=== PATIENT | male | born 1965 | race Caucasian/White ===

== ENCOUNTER → 2017-12-19 06:56 | Day surgery (SDC) | payer OTHER ==
[~2017-12-19 06:56] MED LIST: Buffered Lidocaine 0.9% SYRIN* 5 ML/SYR SYRINGE INTRADERM ONE; Bupivacaine 0.5% SDV PF* 30ML VIAL ONE; Bupivacaine 0.5% W/EPI SDV* 30 ML VIAL ONE; Clindamycin 900 MG/D5W BAG(*) 900 MG/50 ML BAG IVPB ONE; Lidocaine 2% PF * 5 ML VIAL ONE; Midazolam* 1 MG/ML 2 ML VIAL (2 MG) ONE; Naloxone* 0.4 MG/ML 1 ML VIAL IV PRN; Propofol* 10 MG/ML 20 ML BTL IV PUSH ONE; Sodium Citrate/Citric Acid* 15 ML UDC ONE; Sodium Citrate/Citric Acid* 15 ML UDC PO ONE; fentaNYL* 50 MCG/ML 2 ML VIAL (100 MCG VIAL) ONE
[2017-12-19] MEDS: fentaNYL* 50 MCG/ML 2 ML VIAL (100 MCG VIAL) IV PRN ×4 (09:11→09:24)
[2017-12-19 09:46] VITALS: BP 133/76
--- NOTE | 2017-12-19 17:12 | OP ---
OPERATIVE REPORT: DATE OF OPERATION: 12/19/17 DATE OF : 65 SURGEON: Gautam Montenegro MD FORM [employer]TER [address] FORMS: CHELSI Collazo A physician speech language pathologist assistant was required for the length of the procedure for assistance with position, retraction, closure. ANESTHESIOLOGIST: Dr. Gary Hawk. ANESTHESIA: General anesthesia, local anesthesia with less than 10cc Marcaine 0.25% with epinephrine in subcutaneous tissue dorsal hand. PRE-OP DIAGNOSES: 1. Right hand dorsum soft tissue swelling and pain. 2. Right hand long finger metacarpophalangeal joint effusion. 3. Right hand long finger metacarpophalangeal joint possible infection, possible osteomyelitis. 4. Right hand dorsum possible foreign body. POST-OP DIAGNOSES: 1. Right hand chronic wound, dorsum. 2. Right hand traumatic arthrotomy long finger metacarpophalangeal joint. 3. 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 OPERATIVE PROCEDURES: 1. Open arthrotomy with irrigation and debridement, right hand long finger metacarpophalangeal joint. 2. Irrigation and debridement right hand, skin, subcutaneous tissue, muscle, bone. IV ANTIBIOTICS: Clindamycin 900 mg IV provided after cultures were obtained. IV FLUIDS: See anesthesia note. TOURNIQUET TIME: 60 minutes at 215 mmHg with the tourniquet over the upper arm. AYHA-CF-[id number] TIME: 50 minutes. IRRIGATION UTILIZED: 3 liters. SPECIMENS: Aerobic and anaerobic culture swabs. IMPLANTS: None. COMPLICATIONS: None. ESTIMATED BLOOD LOSS: Minimal. INDICATIONS FOR PROCEDURE: The patient is a 52-year-old man, right-hand dominant prisoner at the [facility], hepatitic C positive, who presented to me in clinic with swelling of the dorsum of the right hand since March of 2017. The patient states that the injury started with a spider bite. There was relapsing swelling about the dorsum of the hand adjacent to the long finger MCP joint. This area was lanced, incised by a hospital doctor 3 times, but the fluid kept on accumulating. MRI preoperatively demonstrated a large effusion in the MCP joint. There is also some increased signal of bone and possible foreign body superficial to the extensor mechanism. Blood work was not consistent with infection. I booked the patient for surgery, incision, irrigation, and debridement, expecting possible foreign body, possible granulomatous reaction, possible infection. DESCRIPTION OF PROCEDURE: In the preoperative holding area, the patient signed written consent. Operative extremity and operative finger were marked in preoperative holding. The patient was taken back to the operating room and placed supine on the operating room table. General anesthesia was induced. Hand table applied. Tourniquet was placed around the right upper arm. The right upper extremity was prepped and draped. Surgical time-out was performed. Esmarch was applied and the tourniquet was elevated to 250 mmHg. Examination of the skin revealed no drainage, but did reveal a puncture-type defect in the skin, with healing above it. I made a longitudinal skin incision that incorporated this divot in the skin. I dissected down to the extensor mechanism. Extensor mechanism was scared into the subcutaneous tissue and skin about that divot area. I carefully dissected these 2 layers apart, trying to minimize any damage to small superficial veins and nerves. There clearly appeared to be a type of closed off fistula between the outside of the skin and the subcutaneous layer. Light irrigation. Examination of the extensor mechanism revealed a longitudinal traumatic arthrotomy in the extensor mechanism down through the joint capsule, with exposed metacarpal head. This longitudinal traumatic arthrotomy was present ulnar to the extensor tendon, which appeared to be intact. There was some cuff ulnar to the extensor tendon still intact. No clear foreign body removed. There was some scaring, globular, about the extensor mechanism. This was removed with a rongeur and also with sharp dissection, off the ulnar aspect of the extensor mechanism just ulnar to the traumatic arthrotomy site. Extensor mechanism looked in relatively good shape, otherwise. I extended the traumatic arthrotomy a cm proximal and distal for improved visualization. I placed retractors and evaluated the metacarpal head and base of the proximal phalanx. Articular cartilage was in excellent shape. No damage to it. No tooth present. No injury and no wearing away of articular cartilage of either aspect. I visualized the bone along the dorsum of the metacarpal head in the area that there was increased signal uptake on preoperative MRI. I lightly debrided this bone with a small curette and there was no area of softening or a clear bone infection. It should be stated that as soon as I started dissecting about the extensor mechanism, I had obtained aerobic and anaerobic culture swabs and after that, I started the IV antibiotics. This was done earlier in the case. After having confirmed, no bone infection and good quality of articular cartilage, I went about irrigating well the MCP joint. Using cystoscopy tubing , I irrigated with over 2 liters of normal saline. I next closed the arthrotomy with [id number] stitches using first Ethibond 2.0 suture and then Vicryl 2.0 suture. This closed this layer nicely. The extensor tendon still appear to bites itself slightly radially, but this was not a part of the complaint by the patient's preoperatively. I next irrigated additionally so that the total irrigant used was 3 liters. I next closed the skin with horizontal mattress stitches using nylon 4.0 suture. Tourniquet was dropped. Xeroform, 4x4, sterile Webril followed by Coban were applied. This was a very big bulky dressing intentionally placed to prevent any blunt from being visible and also to minimized somewhat his finger movement. The patient was awaken from anesthesia, extubated, and brought to the PACU. DISPOSITION: The patient was given a sling to wear as needed. He will keep the dressing until postoperative followup. This is to minimize movement of that finger to allow good healing of the extensor mechanism as well as to prevent contamination in correction. I had the patient started on Bactrim b.i.d. x2 weeks postoperative, 14 days. The patient will follow up with me in clinic in approximately 10 days for a wound check. [id number]/CPS #: [id number] EMIL
== END | disposition home or self-care (01) ==
LOC: OR 06:56
PROVIDERS: ATTEND Orthopaedic Surgery
DX: M65.841 Other synovitis and tenosynovitis, right hand (principal); L02.511 Cutaneous abscess of right hand; Z72.0 Tobacco use; B19.20 Unspecified viral hepatitis C without hepatic coma
CPT/HCPCS: 87070; 87073; 87077; 87186; 87205; 88305; A9270-GY; J2250; J2704; J3010